=== PATIENT | male | born 1945 | race African-American/Black ===

== ENCOUNTER 2022-11-05 11:13 | Emergency (ER) | payer OTHER ==
[~2022-11-05] VITALS: Ht 182.9 cm; Wt 78.0 kg
[~2022-11-05 11:13] MED LIST: gliburide; norvasc; simvastatin
[2022-11-05 11:19] VITALS: BP 109/57
--- NOTE | 2022-11-05 11:38 | NUR ---
here for cold symptoms, already seen by md, no distress noted in pt
--- NOTE | 2022-11-05 11:41 | NUR ---
Patient discharged with v/s stable. Written and verbal after care instructions given and explained. Patient verbalized understanding. Ambulatory with steady gait. All questions addressed prior to discharge. Advised to follow up with PMD.
[2022-11-05 11:45] VITALS: BP 132/78
== END 2022-11-05 11:41 | disposition home or self-care (01) ==
LOC: MED 11:13
DX: J06.9 Acute upper respiratory infection, unspecified (principal); E11.9 Type 2 diabetes mellitus without complications; I10 Essential (primary) hypertension; F12.90 Cannabis use, unspecified, uncomplicated; Z79.4 Long term (current) use of insulin; Z79.899 Other long term (current) drug therapy; Z98.890 Other specified postprocedural states
CPT/HCPCS: 99281